=== PATIENT | male | born 1950 | race Caucasian/White ===

== ENCOUNTER → 2021-05-07 12:38 | Outpatient (CLI) | payer MEDICARE, OTHER, SELFPAY ==
--- NOTE | 2021-05-07 12:58 | DI.MRI.S_ITS ---
PROCEDURE: MR KNEE LT WO CON INDICATIONS: Pain in left knee TECHNIQUE: Noncontrast sagittal PD fast spin echo and T2 fast spin echo with fat saturation, sagittal 3-D FLASH with fat saturation; coronal T1 spin echo and PD fast spin echo with fat saturation, and axial PD fast spin echo with fat saturation through the knee. COMPARISON: [facility], [place], XR KNEE ARTHRITIC SERIES BI, 04/24/2021, 11:26. FINDINGS: Image quality: Excellent. Menisci: The lateral meniscus is intact. Surfacing signal seen in the posterior horn, medial meniscus, compatible with meniscal tear. Minimal medial meniscal extrusion is noted. Cruciate ligaments: The anterior and posterior cruciate ligaments appear intact. Medial structures: The medial collateral ligament appears intact but demonstrates periligamentous edema. Visualized portions of the pes anserinus tendons appear normal. No abnormal bursal fluid. Lateral structures: The lateral collateral ligament complex appears intact. The popliteus tendon appears intact. Small amount of fluid is seen at the musculotendinous junction of the popliteus, which may reflect injury. Iliotibial band appears normal. Anterior structures: The quadriceps and patellar tendons appear intact. Patellar alignment is normal. No femoral trochlear dysplasia or ventral trochlear prominence. No edema in the infrapatellar fat pad. Bones and cartilage: No bone marrow contusions or fractures. Subcentimeter T2 hyperintense focus in the anterior aspect of the tibial plateau, most consistent with fibrocystic change or parameniscal cyst. Signal heterogeneity and thinning of the medial compartment hyaline cartilage. Signal heterogeneity with small area of fissuring in the lateral femoral condyle hyaline cartilage. Signal heterogeneity with thinning of the hyaline cartilage overlying the medial patellar facet. Joint space: There is physiologic knee joint fluid. No Pizarro's cyst. Normal appearing synovial plicae are incidentally noted. IMPRESSION: 1. Posterior horn, medial meniscal tear with minimal extrusion. 2. Grade 1/2 MCL injury. 3. Small amount of fluid at the musculotendinous junction of the popliteus, which may reflect injury. 4. Tricompartment chondromalacia. Dictated by: Jose Workman M.D. on 05/07/2021 at 13:28 Approved by: Jose Workman M.D. on 05/07/2021 at 13:54
== END ==
PROVIDERS: Referring Provider Orthopaedic Surgery; Visit Provider Orthopaedic Surgery
DX: S83.242A Other tear of medial meniscus, current injury, left knee, initial encounter (principal); S83.412A Sprain of medial collateral ligament of left knee, initial encounter; M94.262 Chondromalacia, left knee; M25.562 Pain in left knee
CPT/HCPCS: 73721

== ENCOUNTER 2021-06-23 09:08 | Emergency (ER) | payer MEDICARE, OTHER, SELFPAY ==
--- NOTE | 2021-06-23 09:13 | ED_ITS ---
HPI - Neck Pain/Injury General Chief Complaint: Fall Stated Complaint: fell and hurt neck -whiplash and neck pain Time Seen by Provider: 06/23/21 09:13 History of Present Illness HPI Narrative: 70-year-old male nonsmoker with history of DVTs on Eliquis presents with his in the chief complaint of a ground level fall about 2 days ago resulting in some neck pain, rib pain and head injury. He is activated as a modified trauma given head injury on anticoagulation. He states that he was standing in a hotel room and lost his balance and fell, striking his head and injuring himself in neck and ribs. He denies loss of consciousness but was dazed. He denies vomiting but has been significantly nauseated. He has felt a bit wobbly and ?off? since. [place] in [place] and he elected to hold off on evaluation so he did not miss his flight. He also has right-sided neck pain off the midline which is worse with motion and improves with rest. He denies neurologic symptoms such as numbness, tingling or weakness. Finally has some left-sided chest pain where he struck an object during the fall. He denies any popping, clicking or hemoptysis but does have sharp localizing pain with deep breath. He denies abdominal pain or injury otherwise stated. He denies prodromal symptoms such as dizziness, weakness or lightheadedness. Review of Systems Review of Systems Narrative: GENERAL: Denies chills, fatigue, malaise, fever, sweats. HEENT: Denies sinus pain, ear pain, sore throat, difficulty swallowing, dizziness. RESPIRATORY: See HPI CARDIOVASCULAR: See HPI GASTROINTESTINAL: Denies nausea, vomiting, abdominal pain, diarrhea, constipation, melena. : Denies dysuria, frequency, incontinence, hematuria, urinary retention. MUSCULOSKELETAL: See HPI SKIN: Denies rash, skin lesions, or other NEUROLOGIC: Denies weakness, headache, numbness, change in speech, confusion, seizures, incoordination. PSYCHIATRIC: No concerning psychosocial issues. 12 point review of systems is negative except for those stated above Patient History Social History Smoking Status: Never smoker Exam Narrative Exam Narrative: GENERAL: [70] year old patient appears stated age. Well-developed patient, in mild distress. GCS 15 HEAD: Tender to palpation on left temporal region with dried blood, no evidence of depressed skull fracture or other hematoma or evidence of injury. EYES: Pupils equal round and reactive. No hyphema Extraocular motions intact. No scleral icterus. No injection or drainage. ENT: Nose without bleeding, purulent drainage. No nasal septal hematoma, otherwise without erythema, tonsillar hypertrophy or exudate. Airway patent. NECK: Trachea midline. No midline tenderness, step-offs or crepitance. Significant tenderness to palpation in the right-sided lateral musculature, no radicular symptoms, no change with axial load. CARDIOVASCULAR: Regular rate and rhythm without murmurs, gallops, or rubs. RESPIRATORY: Clear to auscultation. Breath sounds equal bilaterally. No wheezes, rales, or rhonchi. Left lateral ribs tender to palpate, no clicking, subcu emphysema or edema GASTROINTESTINAL: Abdomen soft, non-tender, nondistended. EXTREMITIES: No edema or joint tenderness. BACK: Nontender without deformity or crepitance. No flank tenderness. NEURO: AOx3. SKIN: No rash or erythema of visible areas Initial Vital Signs Initial Vital Signs: Vital Signs Temperature 99.6 F 06/23/21 09:45 Pulse Rate 74 06/23/21 09:45 Respiratory Rate 18 06/23/21 09:45 Blood Pressure 157/103 H 06/23/21 09:45 Pulse Oximetry 100 06/23/21 09:45 Course Orders Ordered: ED Orders 06/23/21 09:55 CT cervical spine wo con Stat 06/23/21 09:57 XR ribs LT min 3V w CXR1V Stat 06/23/21 10:06 CT head/brain wo con Stat Vital Signs Vital signs: Vital Signs - 8 hr 06/23/21 09:45 06/23/21 09:55 06/23/21 09:56 Temperature 99.6 F Pulse Rate 74 86 85 Respiratory Rate 18 Blood Pressure 157/103 H 168/87 H Pulse Oximetry 100 97 96 MDM - Neck Pain/Injury Imaging Data CT scan - head: Radiologist's Impression: Launch?[address] [address] [address] Scan Report Signed Patient: TU CALDWELL MR#: [id number] : 1950 Acct:[id number] Age/Sex: 70 / M Date of Service: 06/23/21 Loc: ED Accession Number: [id number] ?? Procedure: CT head/brain wo con Ordering Provider: Cuauhtemoc Vila D.O. PROCEDURE:? CT HEAD/BRAIN WO CON ? INDICATIONS:? fall hit head on thinners ? TECHNIQUE:? Noncontrast 4.5 mm thick angled axial sections acquired from the foramen magnum to the vertex, with coronal and sagittal reformats.? For radiation dose reduction, the following was used:? automated exposure control, adjustment of mA and/or kV according to patient size.? ? COMPARISON:? None. ? FINDINGS:? Image quality:? Excellent.? ? CSF spaces:? Basal cisterns are patent.? No extra-axial fluid collections.? The ventricles are symmetric in size and shape.? ? Brain:? No intracranial bleeds or masses.? There is cerebral volume loss for age, with resultant ventricular and sulcal prominence.? There are periventricular and deep white matter chronic small vessel ischemic changes.? There is intracranial internal carotid artery atherosclerosis.? ? Skull and face:? Calvarium and visualized facial bones appear intact, without suspicious lesions.? ? Sinuses:? Visualized sinuses and mastoids are clear.? ? IMPRESSION:? No CT evidence of acute intracranial abnormalities.? Moderate atrophy and mild white matter chronic small vessel ischemic changes.? No acute skull fracture. ? ? Dictated by: Brandon Harmon M.D. on 06/23/2021 at 10:27 ? ? Approved by: Brandon Harmon M.D. on 06/23/2021 at 10:27 ? CT - cervical spine: Radiologist's Impression: [place] [address] CT Scan Report Signed Patient: TU CALDWELL MR#: [id number] : 1950 Acct:[id number] Age/Sex: 70 / M Date of Service: 06/23/21 Loc: ED Accession Number: [id number] ?? Procedure: CT cervical spine wo con Ordering Provider: Cuauhtemoc Vila D.O. PROCEDURE:? CT CERVICAL SPINE WO CON ? INDICATIONS:? fall hit head on thinners ? TECHNIQUE:? Noncontrast 3 mm thick sections acquired from the skull base to the T4 level.? Sagittal and coronal reformats were then constructed.? For radiation dose reduction, the following was used:? automated exposure control, adjustment of mA and/or kV according to patient size.? ? COMPARISON:? None. ? FINDINGS:? Image quality:? Excellent.? ? Bones:? There is prior anterior fusion of cervical spine at C3-4 level with postsurgical changes and near complete bony fusion at this level.? Straightening of normal cervical lordosis is seen.? No acute cervical spine fracture or dislocation.? Degenerative endplate changes and loss of disc height as well as bilateral facet hypertrophic changes are noted throughout cervical spine more prominent at C5-6 through C7-T1 levels.? Visualized superior ribs are intact.? ? Soft tissues:? Prevertebral soft tissues are normal in thickness.? No paravertebral hematomas.? No apical pneumothoraces.? ? ? IMPRESSION:? 1.? No acute cervical spine fracture or dislocation. 2. Prior anterior fusion at C3-4 level.? Degenerative disc disease throughout cervical spine as above. ? ? Dictated by: Brandon Harmon M.D. on 06/23/2021 at 10:21 ? ? Approved by: Brandon Harmon M.D. on 06/23/2021 at 10:27 ? Chest x-ray: Radiologist's Impression: Launch?[place] [address] XRay Report Signed Patient: TU CALDWELL MR#: [id number] : 1950 Acct:[id number] Age/Sex: 70 / M Date of Service: 06/23/21 Loc: ED Accession Number: [id number] ?? Procedure: XR ribs LT min 3V w CXR1V Ordering Provider: Cuauhtemoc Vila D.O. PROCEDURE:? XR RIBS LT MIN 3V W CXR1V ? INDICATIONS:? fall and hit ribs ? TECHNIQUE:? 2 views of the left ribs were acquired, along with a single view chest.? ? COMPARISON:? [facility], CT, CT CERVICAL SPINE WO CON, 06/23/2021, 10:03. ? FINDINGS:? ? Surgical changes and devices:? None.? ? Bones and chest wall:? No fractures or dislocations.? No suspicious bony lesions.? Overlying soft tissues appear unremarkable.? ? Lungs and pleura:? No pleural effusions or pneumothorax.? Lungs appear clear.? No consolidation.? ? Mediastinum:? Mediastinal contours appear normal.? Heart size is normal.? ? IMPRESSION:? No displaced left-sided rib fractures. ? ? Dictated by: Yusuf Isaac M.D. on 06/23/2021 at 10:25 ? ? Approved by: Yusuf Isaac M.D. on 06/23/2021 at 10:27 ?
[2021-06-23 09:45] VITALS: BP 157/103; PULSE 74; RESP 18; TEMP 37.6; O2SAT 100; BMI 28.3
[2021-06-23 09:55] VITALS: PULSE 86; O2SAT 97
--- NOTE | 2021-06-23 09:55 | DI.CT.S_ITS ---
PROCEDURE: CT CERVICAL SPINE WO CON INDICATIONS: fall hit head on thinners TECHNIQUE: Noncontrast 3 mm thick sections acquired from the skull base to the T4 level. Sagittal and coronal reformats were then constructed. For radiation dose reduction, the following was used: automated exposure control, adjustment of mA and/or kV according to patient size. COMPARISON: None. FINDINGS: Image quality: Excellent. Bones: There is prior anterior fusion of cervical spine at C3-4 level with postsurgical changes and near complete bony fusion at this level. Straightening of normal cervical lordosis is seen. No acute cervical spine fracture or dislocation. Degenerative endplate changes and loss of disc height as well as bilateral facet hypertrophic changes are noted throughout cervical spine more prominent at C5-6 through C7-T1 levels. Visualized superior ribs are intact. Soft tissues: Prevertebral soft tissues are normal in thickness. No paravertebral hematomas. No apical pneumothoraces. IMPRESSION: 1. No acute cervical spine fracture or dislocation. 2. Prior anterior fusion at C3-4 level. Degenerative disc disease throughout cervical spine as above. Dictated by: Brandon Harmon M.D. on 06/23/2021 at 10:21 Approved by: Brandon Harmon M.D. on 06/23/2021 at 10:27
[2021-06-23 09:56] VITALS: BP 168/87; PULSE 85; O2SAT 96
--- NOTE | 2021-06-23 09:57 | DI.RAD.S_ITS ---
PROCEDURE: XR RIBS LT MIN 3V W CXR1V INDICATIONS: fall and hit ribs TECHNIQUE: 2 views of the left ribs were acquired, along with a single view chest. COMPARISON: [facility], CT, CT CERVICAL SPINE WO CON, 06/23/2021, 10:03. FINDINGS: Surgical changes and devices: None. Bones and chest wall: No fractures or dislocations. No suspicious bony lesions. Overlying soft tissues appear unremarkable. Lungs and pleura: No pleural effusions or pneumothorax. Lungs appear clear. No consolidation. Mediastinum: Mediastinal contours appear normal. Heart size is normal. IMPRESSION: No displaced left-sided rib fractures. Dictated by: Yusuf Isaac M.D. on 06/23/2021 at 10:25 Approved by: Yusuf Isaac M.D. on 06/23/2021 at 10:27
--- NOTE | 2021-06-23 10:06 | DI.CT.S_ITS ---
PROCEDURE: CT HEAD/BRAIN WO CON INDICATIONS: fall hit head on thinners TECHNIQUE: Noncontrast 4.5 mm thick angled axial sections acquired from the foramen magnum to the vertex, with coronal and sagittal reformats. For radiation dose reduction, the following was used: automated exposure control, adjustment of mA and/or kV according to patient size. COMPARISON: None. FINDINGS: Image quality: Excellent. CSF spaces: Basal cisterns are patent. No extra-axial fluid collections. The ventricles are symmetric in size and shape. Brain: No intracranial bleeds or masses. There is cerebral volume loss for age, with resultant ventricular and sulcal prominence. There are periventricular and deep white matter chronic small vessel ischemic changes. There is intracranial internal carotid artery atherosclerosis. Skull and face: Calvarium and visualized facial bones appear intact, without suspicious lesions. Sinuses: Visualized sinuses and mastoids are clear. IMPRESSION: No CT evidence of acute intracranial abnormalities. Moderate atrophy and mild white matter chronic small vessel ischemic changes. No acute skull fracture. Dictated by: Brandon Harmon M.D. on 06/23/2021 at 10:27 Approved by: Brandon Harmon M.D. on 06/23/2021 at 10:27
[2021-06-23 10:14] VITALS: PULSE 79; O2SAT 98
[2021-06-23 10:30] VITALS: PULSE 70; O2SAT 98
[2021-06-23 11:31] VITALS: BP 152/72; PULSE 73; RESP 16; O2SAT 98
== END 2021-06-23 11:38 | disposition home or self-care (01) ==
PROVIDERS: Emergency Provider Emergency Medicine
DX: S09.90XA Unspecified injury of head, initial encounter (principal); M54.2 Cervicalgia; R07.81 Pleurodynia; Z79.01 Long term (current) use of anticoagulants
CPT/HCPCS: 70450; 71101; 72125; 99284